=== PATIENT | female | born 1945 | race Caucasian/White ===

== ENCOUNTER 2017-10-09 16:51 | Emergency (ER) | payer MEDICARE, MEDICAID ==
[2017-10-09 17:57] LABS: ALT (SGPT) 12 U/L (8-55); AST (SGOT) 18 U/L (5-34); Albumin 4.1 g/dL (3.4-4.8); Alkaline Phosphatase 78 U/L (40-150); Anion Gap 16 mmol/L (10-20); BUN (Urea Nitrogen) 26 mg/dL (9.8-20.1); Bilirubin, Total 0.5 mg/dL (0.2-1.2); Calc. Creatinine Clearance 0 mL/min (70-130); Calcium 9.8 mg/dL (7.8-10.44); Carbon Dioxide 23 mmol/L (23-31); Chloride 102 mmol/L (98-107); Estimated GFR-MDRD 69; Globulin 3.7 g/dL (2.4-3.5); Glucose 117 mg/dL (83-110); Potassium 4.4 mmol/L (3.5-5.1); Protein, Total 7.8 g/dL (6.0-8.3); Sodium 137 mmol/L (136-145)
[2017-10-09 17:59] LABS: Troponin I Less than 0.010 ng/mL (< 0.028)
[2017-10-09 18:03] LABS: Band 2 % (5-11); Hemoglobin 13.2 g/dL (12.0-16.0); Lymphocytes 29 % (21-51); MDiff Complete? YES; Mean Corpuscular HGB CONC 33.2 g/dL (32.0-36.0); Mean Corpuscular Hemoglobin 28.1 pg (27.0-31.0); Mean Corpuscular Volume 84.5 fL (78.0-98.0); Mean Platelet Volume 6.7 fL (7.4-10.4); Monocytes 8 % (0-10); Neutrophil 60 % (42-75); PLT Morphology Comment Appears Adequate; Platelet Count 249 thou/uL (130-400); RBC Distribution Width 11.3 % (11.5-14.5); RBC Morphology Normal; Red Blood Cell (RBC) Count 4.72 mill/uL (4.20-5.40); White Blood Cell (WBC) Count 7.7 thou/uL (4.8-10.8)
== END 2017-10-09 18:20 | disposition home or self-care (01) ==
LOC: SCSER 16:51
DX: I10 Essential (primary) hypertension (principal); Z79.899 Other long term (current) drug therapy
CPT/HCPCS: 36415; 80053; 82553; 84484; 85025; 93005

== ENCOUNTER 2017-11-29 08:08 | Outpatient (CLI) | payer MEDICARE, MEDICAID ==
--- NOTE | 2017-11-29 13:21 | CT ---
CT ANGIOGRAM ABDOMEN AND PELVIS WITH IV CONTRAST AND 3D RECONSTRUCTIONS: DATE: 11/29/17. HISTORY: Essential hypertension. COMPARISON: None available. FINDINGS: There is a single patent left renal artery with minimal vascular calcifications at the origin. There is also a single right renal artery with atherosclerotic irregularity at the origin. Based on sagit tye imaging, there is a moderate to severe stenosis at the origin of the right renal artery. The celiac, superior mesenteric, and the inferior mesenteric arteries are patent. The abdominal aorta is normal in caliber without evidence of an aortic dissection. Scattered atheros clerotic vascular calcifications are seen. The bilateral iliac arteries as well as visualized femora l arteries are patent. Minimal scarring atelectasis as seen in the right middle lobe. Lung bases are otherwise clear. There is a small 5 mm focus of enhancement seen in the lateral segment left hepatic lobe which is dif ficult to further characterize given very small size on this exam. The spleen, pancreas, bilateral adrenal glands, left kidney, decompressed urinary bladder, and uterus demonstrate a normal CT appearance for phase of imaging. Subcentimeter too small to characterize hy podense lesions are seen in the right kidney. There is mild thickening of each adrenal gland which m ay be related to adrenal hyperplasia, but there is no adrenal nodule present. The retrocecal appendix is visualized and normal in caliber. No free fluid, fluid collection, or lymphadenopathy is seen in the abdomen or pelvis. Mild degenerative changes are seen in the lumbar spine. IMPRESSION: 1. Irregularity involving the origin of the left renal artery. This is best seen on axial imaging a nd based on axial imaging, there is a suggestion of moderate to severe narrowing at the origin of the right renal artery. The left renal artery is patent. 2. Patent mesenteric vessels. 3. Approximately 5 mm focus of enhancement in the lateral segment of the left hepatic lobe. This is difficult to further characterize due to small size. Followup evaluation in 6 months is recommended , and 3-phase imaging of the liver is recommended at that time. POS: LAI
== END 2017-11-29 08:09 | disposition home or self-care (01) ==
LOC: SCSCT 08:08
PROVIDERS: ATTEND Internal Medicine Cardiovascular Disease
DX: I10 Essential (primary) hypertension (principal); I77.89 Other specified disorders of arteries and arterioles
CPT/HCPCS: 74174; 82565

== ENCOUNTER 2018-06-24 19:20 | Inpatient (IN) | payer MEDICARE, MEDICAID ==
[~2018-06-24 19:20] MED LIST: Glycopyrrolate 0.2 MG/ML 5 ML SYRINGE ONE; Lidocaine 1% PF 5 ML VIAL ONE; Ondansetron PF 4 MG/2 ML Vial ONE; PROPOFOL 200 MG/20 ML VIAL ONE; Rocuronium Bromide 10 MG/ML (10ML VIAL) ONE
[2018-06-24] MEDS ORDERED: Adacel (T-DAP) 0.5 ML SYRINGE ONE (19:31)
[2018-06-24] MEDS ORDERED: Bacitracin Zinc 1 Packet ONE (19:31)
--- NOTE | 2018-06-24 20:06 | RAD ---
RIGHT LOWER LEG TWO VIEWS: 06/24/18 HISTORY: Right leg injury. FINDINGS: Comminuted predominantly spiral fracture of the distal tibial shaft is present with one quarter shaft width posterior displacement of the major distal fragment and external rotation, possibly up to 90 d egrees. Comminuted oblique fracture of the proximal fibular shaft is present with one half shaft width anteri or and lateral displacement of the distal fragment. IMPRESSION: Right tibial and fibular fractures with external rotation. POS: JACEK
[2018-06-24 20:48] LABS: #Basophils 0.1 thou/uL (0.0-0.2); #Lymphocytes 1.6 thou/uL (1.20-3.40); #Monocytes 1.2 thou/uL (0.11-0.59); %Basophils 0.8 % (0.0-1.0); %Eosinophils 0.3 % (0.0-10.0); %Lymphocytes 11.7 % (21.0-51.0); %Monocytes 8.3 % (0.0-10.0); Hemoglobin 12.5 g/dL (12.0-16.0); Mean Corpuscular HGB CONC 31.9 g/dL (32.0-36.0); Mean Corpuscular Hemoglobin 27.7 pg (27.0-31.0); Mean Platelet Volume 6.3 fL (7.4-10.4); Platelet Count 234 thou/uL (130-400); RBC Distribution Width 12.6 % (11.5-14.5); Red Blood Cell (RBC) Count 4.49 mill/uL (4.20-5.40); White Blood Cell (WBC) Count 13.9 thou/uL (4.8-10.8)
[2018-06-24 21:03] LABS: ALT (SGPT) 15 U/L (8-55); AST (SGOT) 17 U/L (5-34); Albumin 4.4 g/dL (3.4-4.8); Alkaline Phosphatase 75 U/L (40-150); Anion Gap 13 mmol/L (10-20); BUN (Urea Nitrogen) 26 mg/dL (9.8-20.1); Bilirubin, Total 0.4 mg/dL (0.2-1.2); Calc. Creatinine Clearance 0 mL/min (70-130); Calcium 9.9 mg/dL (7.8-10.44); Carbon Dioxide 26 mmol/L (23-31); Chloride 102 mmol/L (98-107); Estimated GFR-MDRD 50; Globulin 3.8 g/dL (2.4-3.5); Glucose 137 mg/dL (83-110); Potassium 4.4 mmol/L (3.5-5.1); Protein, Total 8.2 g/dL (6.0-8.3); Sodium 137 mmol/L (136-145)
[2018-06-24 21:04] LABS: INR-International Normal Ratio 0.9; PTT 27.3 SEC (22.9-36.1); Prothrombin Time 12.7 SEC (12.0-14.7)
[2018-06-24] MEDS ORDERED: Ampicillin 2 GM VIAL ONE (21:19)
--- NOTE | 2018-06-24 21:24 | HP ---
REQUESTING PHYSICIAN: Dr. Wray. CONSULTATIONS: Orthopedics, Dr. Dillon. HISTORY OF PRESENT ILLNESS: The patient is a 73-year-old woman who was ambulating in her house when she missed a step and fell on her right lower extremity. She heard a pop and had immediate pain. She had immediate pain and had a popping sensation. She was unable to ambulate. Her son brought her to the emergency department in [facility] where she underwent evaluation and examination and was noted to have a right distal tibia and proximal fibular fracture, at which time, we were asked to evaluate the patient for admission and obtain Orthopedic consultation. There was noted a small puncture wound in proximity to the tibial fracture making this a grade 1 fracture. The patient denies loss of consciousness or hitting her head. ALLERGIES: NONE. CURRENT MEDICATIONS: "A blood pressure medicine," I believe that it is losartan. PAST MEDICAL HISTORY: Hypertension. SURGICAL HISTORY: Cataract surgery. SOCIAL HISTORY: The patient lives at home with family. There is no history of drug, tobacco, or alcohol use. REVIEW OF SYSTEMS: A 10-point review of systems is negative as otherwise stated. FAMILY MEDICAL HISTORY: Hypertension. PHYSICAL EXAMINATION: VITAL SIGNS: Blood pressure 180/78, heart rate 68, respirations 18, oxygen saturation is 96% on room air. GENERAL: The patient is resting comfortably in the ER bed. She is awake, alert, and oriented x3. Sacul Coma Scale is 15. HEENT. Head: Normocephalic atraumatic. Eyes, extraocular motion intact. PERRLA bilaterally. Ears are atraumatic without discharge. Nose atraumatic without discharge. Oropharynx is clear. NECK: Nontender. Trachea is midline. No JVD. CHEST: Clear to auscultation with good inspiratory and expiratory effort. HEART: Regular rate and rhythm. ABDOMEN: Soft, flat, and nontender with active bowel sounds. Pelvis is stable. EXTREMITIES: Neurovascularly intact x4. Right lower extremity is immobilized in a L and U splint, which has been dressed per physician documentation. The patient has approximately two 3-mm puncture wound consistent with her tibial fracture. BACK: Atraumatic and nontender. LABORATORY DATA: Labs are all pending. RADIOGRAPHIC FINDINGS: Views of the right tibia and fibula show right tibial and fibular fractures with external rotation. ASSESSMENT: 1. Status post ground-level fall. 2. Grade 1 open right tibia and fibular fracture. 3. History of hypertension. 4. Acute pain secondary to trauma. PLAN: Plan will be to admit the patient to the surgical floor after discussion. After discussion with Dr. Dillon, he would like to do his surgical procedure tonight. The patient has been n.p.o. for greater than 8 hours. The patient had her tetanus updated and was given 2 g of Ancef while here in the emergency department. Postoperatively, we will have the patient work with Physical and Occupational therapy, pain control, pulmonary toilet, gastritis and mechanical VTE prophylaxis and discuss placement at that time. The evaluation, examination, laboratory, and radiographic findings will be discussed with Dr. Mayo after this dictation. Job ID: [id number]
[2018-06-24] MEDS ORDERED: Fentanyl 100 MCG/2 ML VIAL ONE (22:35)
[2018-06-24] MEDS ORDERED: Promethazine HCl 25 MG/ML VIAL SLOW IVP PRN (22:57)
[2018-06-24] MEDS ORDERED: Ondansetron HCl/PF 4 MG/2 ML Vial IVP PRN (22:57)
[2018-06-24] MEDS ORDERED: Promethazine HCl 25 MG/ML VIAL IM PRN (22:57)
[2018-06-24] MEDS ORDERED: Morphine 4 MG/ML VIAL SLOW IVP PRN ×2 (23:53)
[2018-06-24] MEDS ORDERED: Ondansetron PF 4 MG/2 ML Vial IVP PRN (23:53)
[2018-06-24] MEDS ORDERED: Ondansetron ODT 4 MG TAB PO PRN (23:53)
[2018-06-24] MEDS ORDERED: Dextrose 5% in Water 1,000 ML IV PRN (23:53)
[2018-06-24] MEDS ORDERED: Dextrose 50% Abboject 50 ML SYRINGE SLOW IVP PRN (23:53)
[2018-06-24] MEDS ORDERED: Sodium Chloride 0.9% 1,000 ML IV SCH (23:53)
--- NOTE | 2018-06-25 00:02 | RAD ---
RIGHT LOWER LEG TWO VIEWS INTRAOPERATIVE FLUOROSCOPY 06/24/18 HISTORY: Fracture. FINDINGS/IMPRESSION: Intraoperative fluoroscopy was provided for internal fixation as performed by Dr. Dillon. Spot fluo roscopic images show long medullary trevor transfixing the fibular fracture, in anatomic alignment. FLUORO TIME: 54 seconds. POS: LIA
[2018-06-25] MEDS: Acetaminophen 1,000 MG in Premix Bag 1 BAG IVPB SCH ×2 (01:19→05:38)
[2018-06-25] MEDS: Ketorolac Tromethamine 30 MG/ML VIAL IVP SCH ×2 (01:19→05:39)
[2018-06-25] MEDS ORDERED: CEFAZOLIN 2 GM in Premix Bag 1 BAG IVPB SCH (06:00)
[2018-06-25 06:03] LABS: #Lymphocytes 1.6 thou/uL (1.20-3.40); #Monocytes 1.2 thou/uL (0.11-0.59); #Neutrophils 8.6 thou/uL (1.40-6.50); %Basophils 0.1 % (0.0-1.0); %Eosinophils 0.3 % (0.0-10.0); %Lymphocytes 14.1 % (21.0-51.0); %Monocytes 10.7 % (0.0-10.0); %Neutrophils 74.7 % (42.0-75.0); Mean Corpuscular HGB CONC 33.2 g/dL (32.0-36.0); Mean Corpuscular Hemoglobin 29.7 pg (27.0-31.0); Mean Corpuscular Volume 89.5 fL (78.0-98.0); Mean Platelet Volume 7.2 fL (7.4-10.4); Platelet Count 229 thou/uL (130-400); RBC Distribution Width 12.3 % (11.5-14.5); Red Blood Cell (RBC) Count 3.71 mill/uL (4.20-5.40); White Blood Cell (WBC) Count 11.4 thou/uL (4.8-10.8)
[2018-06-25 06:20] LABS: Anion Gap 10 mmol/L (10-20); BUN (Urea Nitrogen) 19 mg/dL (9.8-20.1); Calc. Creatinine Clearance 60 mL/min (70-130); Calcium 8.8 mg/dL (7.8-10.44); Carbon Dioxide 27 mmol/L (23-31); Chloride 105 mmol/L (98-107); Estimated GFR-MDRD 65; Glucose 121 mg/dL (83-110); Potassium 4.3 mmol/L (3.5-5.1); Sodium 138 mmol/L (136-145)
[2018-06-25] MEDS ORDERED: traMADol HCl 50 MG TAB PO PRN ×2 (07:01)
[2018-06-25] MEDS ORDERED: Cyclobenzaprine 10 MG TAB PO PRN (07:01)
[2018-06-25] MEDS ORDERED: Acetaminophen 500 MG TAB PO SCH (07:15)
[2018-06-25] MEDS ORDERED: Ibuprofen 800 MG TAB PO SCH (07:15)
[2018-06-25] MEDS: Acetaminophen 500 MG TAB PO SCH ×3 (08:55→18:50)
[2018-06-25] MEDS: hydrALAZINE 25 MG TAB PO SCH (08:56)
[2018-06-25] MEDS: Hydrochlorothiazide 25 MG TAB PO SCH (08:57)
[2018-06-25] MEDS: Famotidine 20 MG TAB PO SCH ×2 (08:57→21:09)
[2018-06-25] MEDS: Losartan 25 MG TAB PO SCH (08:57)
[2018-06-25] MEDS: Amlodipine 5 MG TAB PO SCH (08:58)
[2018-06-25] MEDS ORDERED: HYDROCHLOROTHIAZIDE 12.5 MG PO SCH (09:00)
[2018-06-25] MEDS ORDERED: Non-Formulary Item 1 EACH (Losartan Potassium [Losartan Potassium] 100 MG) PO SCH (09:00)
[2018-06-25] MEDS: Ibuprofen 200 MG TAB PO SCH ×2 (09:08→17:04)
--- NOTE | 2018-06-25 14:48 | PRG ---
DATE OF SERVICE: SUBJECTIVE: The patient is hospital day 2 postop day 1 status post ground-level fall, when she sustained a grade 1 open right tibia and fibular fracture. The patient underwent irrigation and debridement and intramedullary nailing of her right tibia last night. She tolerated this procedure well. She had no issues overnight. Her pain is controlled. She is tolerating a diet this morning, and she is awaiting physical and occupational therapy. OBJECTIVE: VITAL SIGNS: Temperature 98.2, heart rate 73, blood pressure 177/73, respirations 16, and oxygen saturation 97% on room air. GENERAL: The patient is resting comfortably in bed. She is awake and appropriate. HEENT: Unremarkable. LUNGS: Clear to auscultation with good inspiratory and expiratory effort. HEART: Regular rate and rhythm. ABDOMEN: Soft, flat, nontender with active bowel sounds. EXTREMITIES: Neurovascularly intact x4. Right lower extremity is immobilized in a postop dressing and splint. It is clean, dry, and intact. LABORATORY FINDINGS: White blood cell count 11.4, hemoglobin 11.0, hematocrit 33.2, and platelets 229. Sodium 138, potassium 4.3, chloride 105, CO2 of 27, BUN 19, creatinine 0.86, and glucose 121. There are no radiographs reviewed this morning. ASSESSMENT/PLAN: 1. Status post ground-level fall. 2. Status post grade 1 open right tibia and fibular fracture, status post irrigation and debridement and open reduction and internal fixation of tibia fracture. 3. History of hypertension. Plan will be to continue supportive care, physical and occupational therapy. Discussed rehab placement with the patient and family, and they will discuss this with the Case Management. We will also resume all of her home medications. The evaluation was done with Dr. Toussaint this morning during rounds. Job ID: [id number]
[2018-06-25] MEDS: hydrALAZINE 20 MG/ML VIAL SLOW IVP PRN (18:50)
[2018-06-26] MEDS: Ibuprofen 200 MG TAB PO SCH ×3 (00:01→18:23)
[2018-06-26] MEDS: Acetaminophen 500 MG TAB PO SCH ×4 (00:01→18:24)
[2018-06-26] MEDS: hydrALAZINE 20 MG/ML VIAL SLOW IVP PRN (08:39)
--- NOTE | 2018-06-26 08:39 | OP ---
DATE OF PROCEDURE: 06/25/2018 PREOPERATIVE DIAGNOSIS: Grade 1 open right tib-fib fracture. POSTOPERATIVE DIAGNOSIS: Grade 1 open right tib-fib fracture. PROCEDURE: Intramedullary nail stabilization of right tibia. ANESTHESIA: General. IMPLANTS: Synthes EX Nail was used measuring 10 x 300 mm with 3 cross-lock screws. COMPLICATIONS: None. DRAINS: None. SPECIMEN: None. OUTCOME: Near-anatomic alignment of her tibial shaft fracture. INDICATIONS: The patient is a 73-year-old lady, status post ground level fall sustaining a twisting injury of her right lower extremity. She was initially seen and evaluated at the [facility] where x-rays demonstrated a spiral fracture of the distal tibia and a proximal comminuted fracture of the fibular shaft. The patient was found to have 2 very, very small puncture wounds that were bleeding and as such, felt to be a grade 1 open injury. The patient was subsequently transferred to [facility] and is now being taken to the operating room for intramedullary nail stabilization of the right tibia and further visualization, and exploration of these 2 very small puncture wounds to see if it merits opening these wounds up in the operating room. I have discussed with family risks and benefits of surgery. Risks include, but are not limited to bleeding, infection, nerve injury, DVT, PE, loss of limb or life. The patient appears to understand as does her family. Informed consent has been obtained. DESCRIPTION OF PROCEDURE: The patient was brought to the operating room and a time-out performed followed by induction of general anesthesia. The patient was then positioned supine on the fracture table with the well leg held in extension and the injured right lower extremity held over a bolster with the knee flexed approximately 80 degrees and then gentle traction applied to the leg. With this maneuver, the fracture could be reduced to a near anatomic level. The 2 small puncture wounds were inspected. They were almost non-visible, but there were just small drops of blood coming from them. Given the fact this was a very clean injury, it was not felt that this warranted a formal opening of these 2 small punctures. As such, a sterile prep and drape was performed of the right lower extremity. Next, a midline anterior knee incision was made just inferior to the patella. After skin was sharply incised, dissection was carried down bluntly to the underlying peritenon of the patellar tendon. The peritenon was incised longitudinally in line with the skin incision and reflected medially and laterally. Next, an approach just to the medial side of the patellar tendon was exploited and then a was used to obtain a starting point at the proximal tibia. A ball-tipped guidewire was then passed down the canal of the tibia into the distal tibial metaphysis. Next, reaming was started at 8.5 mm and continued up to 11 mm. At 11 mm, there was just start of cortical chatter. Next, a 10 x 300 mm nail was passed over this guidewire down into the distal tibial metaphysis, getting excellent stabilization and alignment of the fracture. Using freehand technique, 2 small stab wounds were made distal medially and then distal cross-locking screws were placed in standard fashion. Using the proximal jig, a single proximal static cross-locking screw was applied. At the completion of this, the jig was removed from the tibial nail and the nail was found to be recessed somewhat and as such, a 5 mm cap screw applied. Next, final AP and lateral C-arm images were obtained. The midline anterior knee incision was irrigated with bulb syringe and normal saline, followed by closure with 0 Vicryl for the paratenon, 2-0 Vicryl subcutaneously, and lila for the skin. Lila were used for the 3 small cross-lock screw sites. The limb was then dressed with Xeroform, gauze, Webril, and a fiberglass splint. She was then transferred to recovery room in stable condition. There were no complications. She tolerated the procedure well. Job ID: [id number]
[2018-06-26] MEDS: hydrALAZINE 25 MG TAB PO SCH (09:25)
[2018-06-26] MEDS: Amlodipine 5 MG TAB PO SCH (09:28)
[2018-06-26] MEDS: Hydrochlorothiazide 25 MG TAB PO SCH (09:29)
[2018-06-26] MEDS: Famotidine 20 MG TAB PO SCH ×2 (09:29→20:08)
[2018-06-26] MEDS: Losartan 25 MG TAB PO SCH (09:29)
--- NOTE | 2018-06-26 13:57 | PRG ---
DATE OF SERVICE: 06/26/2018 SUBJECTIVE: The patient is hospital day 2, postop day 1, status post ground level fall when she sustained a grade 1 open right tib-fib fracture. She has undergone intramedullary nail stabilization of the right tibia, which she tolerated well. She has started working with physical and occupational therapy. Overnight, she had no issues. Her pain is controlled. She is tolerating a diet. OBJECTIVE: VITAL SIGNS: Temperature is 97.9, heart rate 81, blood pressure 186/73, respirations 16, and oxygen saturation 97% on room air. GENERAL: The patient is awake, alert, and oriented x3. She appears in no distress. HEENT: Unremarkable. LUNGS: Clear to auscultation with good inspiratory and expiratory effort. HEART: Regular rate and rhythm. ABDOMEN: Soft, flat, and nontender with active bowel sounds. EXTREMITIES: Neurovascularly intact x4. Right lower extremity has a clean, dry, and intact postop splint on it. LABORATORY AND DIAGNOSTIC DATA: There are no labs or radiographs to review this morning. ASSESSMENT: 1. Status post ground level fall. 2. Status post grade 1 open right tibia-fibular fracture, status post intramedullary nail stabilization of right tibia. 3. Hypertension. PLAN: Plan will be to continue supportive care, physical and occupational therapy. We will work towards placement likely a short stay in inpatient rehab and we will also resume all the patient's blood pressure medicines. The evaluation and examination were done with Dr. Toussaint this morning during rounds. Job ID: [id number]
[2018-06-26] MEDS: Aspirin Chewable 81 MG TAB PO SCH (20:08)
[2018-06-26] MEDS: Senokot S 8.6-50 MG TAB PO SCH (20:08)
[2018-06-27] MEDS: Ibuprofen 200 MG TAB PO SCH ×3 (00:08→14:31)
[2018-06-27] MEDS: Acetaminophen 500 MG TAB PO SCH ×5 (00:09→22:24)
[2018-06-27] MEDS: hydrALAZINE 25 MG TAB PO SCH (10:00)
[2018-06-27] MEDS: Famotidine 20 MG TAB PO SCH ×2 (10:01→22:23)
[2018-06-27] MEDS: Senokot S 8.6-50 MG TAB PO SCH ×2 (10:01→22:23)
[2018-06-27] MEDS: Losartan 25 MG TAB PO SCH (10:01)
[2018-06-27] MEDS: Hydrochlorothiazide 25 MG TAB PO SCH (10:01)
[2018-06-27] MEDS: Amlodipine 5 MG TAB PO SCH (10:02)
[2018-06-27] MEDS: Aspirin Chewable 81 MG TAB PO SCH ×2 (10:02→22:23)
[2018-06-27] MEDS: Polyethylene Glycol 3350 17 GM Packet PO SCH (10:03)
--- NOTE | 2018-06-27 15:03 | PRG ---
DATE OF SERVICE: 06/27/2018 SUBJECTIVE: The patient was seen this morning sitting up in bed. Reported no acute events overnight. She is tolerating regular diet and voiding without difficulties. She is working with Physical and Occupational Therapy. Denies nausea, vomiting, and diarrhea. OBJECTIVE: VITAL SIGNS: Temperature 97.9, pulse 75, respirations 16, oxygen saturation 94% on room air, blood pressure 150/73. GENERAL: Well-appearing elderly female, sitting up in bed with no signs of acute distress. PULMONARY: Clear breath sounds bilaterally. Equal chest rise and fall bilaterally. No signs of acute respiratory distress. CARDIAC: Regular rate and rhythm. No murmurs, gallops, or rubs. GASTROINTESTINAL: Abdomen is soft, nontender, nondistended. EXTREMITIES: Splint to right lower extremity is clean, dry, and intact. Gross motor and sensation intact in all 4 extremities. 2+ pulses in all extremities. No significant swelling noted. LABORATORY FINDINGS: There are no new laboratory findings to discuss. DIAGNOSTIC FINDINGS: There are no new diagnostic findings to discuss. ASSESSMENT: 1. Status post mechanical fall from standing. 2. Right open tib-fib fracture. 3. History of hypertension. PLAN: The patient will continue to receive supportive care as well as physical and occupational therapy. She is back on all of her home medications. We will continue to monitor her blood pressure and make additional changes as needed. We will start lactulose today as she did not have her bowel movement yet. The patient is ready for discharge at this time. The patient was seen and examined by Dr. Toussaint and myself this morning during rounds. Job ID: [id number]
[2018-06-28] MEDS: Ibuprofen 200 MG TAB PO SCH ×2 (01:42→08:53)
[2018-06-28 05:10] LABS: #Basophils 0.1 thou/uL (0.0-0.2); #Eosinphils 0.1 thou/uL (0.0-0.7); #Lymphocytes 2.6 thou/uL (1.20-3.40); #Monocytes 1.1 thou/uL (0.11-0.59); #Neutrophils 4.4 thou/uL (1.40-6.50); %Basophils 0.8 % (0.0-1.0); %Eosinophils 1.7 % (0.0-10.0); %Lymphocytes 31.4 % (21.0-51.0); %Monocytes 13.3 % (0.0-10.0); %Neutrophils 52.8 % (42.0-75.0); Hemoglobin 10.6 g/dL (12.0-16.0); Mean Corpuscular HGB CONC 33.6 g/dL (32.0-36.0); Mean Corpuscular Hemoglobin 29.7 pg (27.0-31.0); Mean Corpuscular Volume 88.3 fL (78.0-98.0); Mean Platelet Volume 7.1 fL (7.4-10.4); Platelet Count 250 thou/uL (130-400); RBC Distribution Width 12.4 % (11.5-14.5); Red Blood Cell (RBC) Count 3.58 mill/uL (4.20-5.40); White Blood Cell (WBC) Count 8.4 thou/uL (4.8-10.8)
[2018-06-28 05:27] LABS: Anion Gap 13 mmol/L (10-20); BUN (Urea Nitrogen) 30 mg/dL (9.8-20.1); Calc. Creatinine Clearance 44 mL/min (70-130); Calcium 9.1 mg/dL (7.8-10.44); Carbon Dioxide 28 mmol/L (23-31); Chloride 98 mmol/L (98-107); Estimated GFR-MDRD 45; Glucose 110 mg/dL (83-110); Magnesium 2.4 mg/dL (1.6-2.6); Phosphorus 4.2 mg/dL (2.3-4.7); Potassium 3.8 mmol/L (3.5-5.1); Sodium 135 mmol/L (136-145)
[2018-06-28] MEDS: Acetaminophen 500 MG TAB PO SCH ×2 (06:50→12:10)
[2018-06-28] MEDS ORDERED: Sodium Chloride 0.9% 500 ML IV SCH (08:30)
[2018-06-28] MEDS ORDERED: Potassium Chloride 40 MEQ in Premix Bag 1 BAG IVPB SCH (08:45)
[2018-06-28] MEDS ORDERED: Potassium Chloride 20 MEQ in Premix Bag 1 BAG IVPB SCH (08:45)
[2018-06-28] MEDS: Hydrochlorothiazide 25 MG TAB PO SCH (08:53)
[2018-06-28] MEDS: Losartan 25 MG TAB PO SCH (08:53)
[2018-06-28] MEDS: Famotidine 20 MG TAB PO SCH (08:54)
[2018-06-28] MEDS: hydrALAZINE 25 MG TAB PO SCH (08:54)
[2018-06-28] MEDS: Amlodipine 5 MG TAB PO SCH (08:54)
[2018-06-28] MEDS: Polyethylene Glycol 3350 17 GM Packet PO SCH (08:55)
[2018-06-28] MEDS: Senokot S 8.6-50 MG TAB PO SCH (08:55)
[2018-06-28] MEDS: Aspirin Chewable 81 MG TAB PO SCH (08:55)
[2018-06-28] MEDS ORDERED: Potassium Chloride 20 MEQ TAB PO SCH (11:45)
[2018-06-28 12:13] VITALS: BP 181/73; TEMP 97.6
--- NOTE | 2018-06-28 16:44 | DIS ---
DATE OF ADMISSION: 06/25/2018 DATE OF DISCHARGE: 06/28/2018 CONSULTATION: Orthopedics, Dr. Dillon. PROCEDURES: 1. On 06/25/2018, intramedullary nail, right tibia by Dr. Dillon. 2. On 06/24/2018, right leg x-ray showed right tibial and fibular fracture with external rotation. PRIMARY DIAGNOSIS: Ground level fall with grade 1 open right tibia and fibular fracture. SECONDARY DIAGNOSIS: History of hypertension. DISCHARGE MEDICATIONS: 1. Tylenol 1000 mg q.6 hours. 2. Norvasc 5 mg p.o. daily. 3. Aspirin 81 mg p.o. b.i.d. 4. Flexeril 5 mg p.o. three times a day as needed. 5. Hydralazine 50 mg p.o. daily. 6. Hydrochlorothiazide 12.5 mg p.o. daily. 7. Ibuprofen 200 mg q.8 hours. 8. Tramadol 50 mg q.6 hours as needed for pain. 9. No discontinued medication. HISTORY OF PRESENT ILLNESS AND HOSPITAL COURSE: This is a 73-year-old female, who was ambulating in her house, when she missed a step and fell on her right lower extremity. She had immediate pain and had a popping sensation. The patient was unable to ambulate. The patient was brought to the emergency room and evaluated to have a right distal tibia and proximal fibular fracture. The patient was taken to the operating room by Dr. Dillon for repair of this open grade 1 fracture. There was no loss of consciousness, and the patient denied hitting her head when she fell. The patient's pain was well controlled throughout her hospital stay. The patient was on gastric prophylaxis and also chemical DVT prophylaxis. The patient was examined on the day of discharge. The patient had no complaints and continued to progress with physical therapy. The patient's vital signs were stable on the day of discharge, and exam was unremarkable including cardiopulmonary and GI exam. The patient was deemed stable for discharge to inpatient rehab for continued physical and occupational therapy. The plan was discussed with Dr. Toussaint and Dr. Mayo, who agree. DISPOSITION: Stable. DISCHARGE INSTRUCTIONS: LOCATION: Inpatient rehab. DIET: Healthy heart diet. ACTIVITY: Orthopedic limitations; nonweightbearing, right lower extremity. The patient to use a walker with ambulation. FOLLOWUP: Follow up with Dr. Toussaint as needed. Follow up with primary care physician, Everardo, as needed. Follow up with Dr. Dillon in 10 days. Call for appointment. Keep splint clean, dry, and intact until followup. Job ID: [id number]
== END 2018-06-28 15:40 | DRG 494 ==
LOC: SCSER 19:20 → SDC/OP 21:47 → SJJU 06-25 00:25
PROVIDERS: ADMIT Orthopaedic Surgery; ATTEND Orthopaedic Surgery
PROC: 0QSG06Z Reposition Right Tibia with Intramedullary Internal Fixation Device, Open Approach (ICD-10-PCS; principal; 2018-06-25)
DX: S82.241B Displaced spiral fracture of shaft of right tibia, initial encounter for open fracture type I or II (principal); S82.451B Displaced comminuted fracture of shaft of right fibula, initial encounter for open fracture type I or II; I10 Essential (primary) hypertension; Z98.49 Cataract extraction status, unspecified eye; W10.9XXA Fall (on) (from) unspecified stairs and steps, initial encounter; Y92.009 Unspecified place in unspecified non-institutional (private) residence as the place of occurrence of the external cause
CPT/HCPCS: 36415; 76000; 80048; 80053; 83735; 84100; 85025; 85610; 85730; 90471; 90715; 93005; 96365; C1713; C1769; J0131; J0290; J0360; J1885; J2001; J2405; J2704; J3010